=== PATIENT | female | born 1995 | race Caucasian/White ===

== ENCOUNTER 2017-01-08 15:45 | Inpatient (IN) | payer MEDICAID ==
[~2017-01-08] VITALS: Ht 154.9 cm; Wt 56.7 kg
[~2017-01-08 15:45] MED LIST: ANALPRAM HC 2.530 GM TP; EPIFOAM10 GM TP; IBUPROFEN600 MG PO; PERCOCET 5-3251 TAB PO; PRENATAL COMPLE1 TAB PO; TUCKS MEDICATE1 EACH TP; TUMS500 MG PO
[2017-01-08 16:47] VITALS: BP 122/71; BMI 23.6
[2017-01-08] MEDS ORDERED: PRENATAL COMPLE1 TAB PO (16:47)
[2017-01-08 17:23] LABS: HEMATOCRIT 31.5 % (36.0-48.0); HEMOGLOBIN 9.7 g/dL (12-16); MCH 23.5 pg (26.0-34.0); MCHC 30.8 g/dL (31.0-37.0); MCV 76.5 fL (80.0-100.0); MEAN PLATELET VOLUME 10.6 fL (7.4-10.4); RBC 4.12 10x6/uL (4.00-5.40); RDW 12.9 % (11.5-14.5); WBC 8.5 10x3/uL (4.8-10.8)
[2017-01-08 17:25] LABS: APPEARANCE CLEAR (CLEAR); BILIRUBIN NEGATIVE (NEGATIVE); COLOR YELLOW (YELLOW); GLUCOSE NEGATIVE (NEGATIVE); KETONE NEGATIVE (NEGATIVE); LEUKOCYTE ESTERASE NEGATIVE (NEGATIVE); NITRITE NEGATIVE (NEGATIVE); PROTEIN NEGATIVE (NEGATIVE); UROBILINOGEN NORMAL (NORMAL)
--- NOTE | 2017-01-09 00:20 | NUR ---
TO ROOM 1273 FROM 1276. ASSISTED PT. TO BED. PT. AWAKE AND ORIENTED. SKIN WARM AND DRY. ORIENTED TO ROOM, CALL SYSTEM, BED CONTROLS AND TEMPERASTAT FOR ROOM TEMP CONTROL. FOB AND PT. STATED UNDERSTANDING TO ALL. INFORMED PT. THAT THIS NURSE WOULD BE GLAD TO HELP HER TO THE BATHROOM ANYTIME NEEDED OR SHE COULD AMBULATE HERSELF IF SHE DESIRED. PT. STATED UNDERSTANDING.
--- NOTE | 2017-01-09 00:40 | NUR ---
ICE CAP TO PERINEAL AREA. PT. STATES CRAMPING IS INTERMITTENT. WARM BLANKET SUPPLIED TO PLACE ON ABD. PT. TEXTING ON CELL PHONE. DENIES ANY NEED FOR NOURISHMENTS OR DRINKS OFFERED. SIDE RAILS UP X 2. FUNDUS FIRM U/2 AND LOCHIA RUBRA SCANT TO MOD.
--- NOTE | 2017-01-09 02:15 | NUR ---
PT. CALLED AND THIS NURSE TO ROOM. STATES SHE JUST GOT UP TO BATHROOM AND HAVING SOME ABD. CRAMPING AGAIN. INQUIRING WHEN NEXT PAIN MED WAS DUE. INFORMATION GIVEN TO PT. ALSO REQUESTING ANOTHER ICE CAP FOR PERINEAL AREA. INQUIRED IF PT. DESIRED ANYTHING ELSE TO DRINK. GAVE PT. OPTIONS AVAILABLE.
--- NOTE | 2017-01-09 02:19 | NUR ---
[place] DRINK TO PT. ICE CAP SUPPLIED AND OFFERED TO ASSIST PT. TO PLACE BUT PT. STATED THAT SHE COULD DO IT HERSELF. FOB SLEEPING IN CHAIR AT BEDSIDE. PRESENTLY LYING ON RT SIDE.
--- NOTE | 2017-01-09 03:17 | NUR ---
pt. at present. Rates pain as a 10 of 10 on pain scale for intermittent cramping. pain med given as ordered.
--- NOTE | 2017-01-09 03:54 | NUR ---
SITTING ON SIDE OF BED HOLDING . STATES HER CRAMPING IS INTERMITTENT AND HAS IMPROVED. RATES A 9 OF 10 ON PAIN SCALE. OFFERED TO RETURN TO NBN BUT PT. DECLINES. STATES SHE CAN'T SLEEP ANYWAY SO SHE WILL KEEP HER. FOB SLEEPING ON SOFA.
--- NOTE | 2017-01-09 04:37 | NUR ---
LYING ON RT SIDE WITH EYES CLOSED. IN OPEN CRIB AT BEDSIDE AND ASLEEP. COLOR PINK. PT WITH REGULAR RESPIRATIONS.
--- NOTE | 2017-01-09 04:40 | NUR ---
INFANT RETURNED TO NBN VIA N STAFF.
[2017-01-09 05:28] LABS: BASOPHILS 0.2 % (0.0-2.0); HEMATOCRIT 28.4 % (36.0-48.0); HEMOGLOBIN 8.9 g/dL (12-16); IMMATURE GRANULOCYTES 0.2 % (0-5); MCH 23.7 pg (26.0-34.0); MCHC 31.3 g/dL (31.0-37.0); MCV 75.7 fL (80.0-100.0); MEAN PLATELET VOLUME 11.4 fL (7.4-10.4); MONOCYTES 8.5 % (2-11); NEUTROPHILS 77.1 % (40-80); PLATELET COUNT 174 10x3/uL (130-400); RBC 3.75 10x6/uL (4.00-5.40); RDW 12.8 % (11.5-14.5); WBC 9.7 10x3/uL (4.8-10.8)
--- NOTE | 2017-01-09 06:03 | NUR ---
LYING ON LT SIDE LOOKING AT . FOB SLEEPING ON SOFA.
[2017-01-09 07:30] VITALS: BP 124/74
--- NOTE | 2017-01-09 07:30 | NUR ---
ASSESSMENT DONE. SITTING UP IN BED HOLDING . CO PAIN- CRAMPING- INCREASES WITH BREAST FEEDING. RATES PAIN A 7-8 ON SCALE OF 0-10. REQUESTING PAIN MED. FUNDUS U3/FIRM. SCANT LOCHIA NOTED ON PAD.
--- NOTE | 2017-01-09 07:50 | NUR ---
meds given for pain per request. new gown. pt instructed to call when gets up to bathroom next.
--- NOTE | 2017-01-09 08:45 | NUR ---
states that pain is better. rates pain a 5 now with cramping. up to bathroom to void. instructed on use of dermablast and tucks pads. pt states she is not ready to take shower at this time.
--- NOTE | 2017-01-09 10:55 | NUR ---
Katy Martin 01/09/17 S: Patient states she nursed her last baby for 2 years, she just stopped nursing one, now she has another. States she is familiar with , states infant does sleep a lot. O: Patient lying in bed, infant next to her, television on. States she tried feeding infant earlier, but baby just slept on and off, and she had visitors, states she can try again. starts winning, patient attempts to place her nipple in mouth, saying she really won't open her mouth, and tries again to place nipple in mouth. Recommend to try and allow infant to open her mouth to latch on to the breast. This will allow infant to have a good latch.Explain how to verify infant is latched correctly. Encouraged patient to try skin to skin now, and stimulate infant by rubbing, to encourage feeding. Encouraged to continue to latch infant for every feeding, explain feeding cues, benefits of skin to skin. takes time and patience in the beginning, the more is placed to the breast, her body will increase, they amount of milk needed for infant. Provided and explain handout on waking a sleeping baby, positions for , what to expect the first week, engorgement during , and hand expression. Asked if she gets WIC, patient states no, she doesn't want to. . Provided fact sheet on how to qualify. Will follow up, asked if any needs or concerns, client declined. A: Patient appears confident with . Breastfed her other child for 2 years. P: Continue to support exclusively . Jeannie Billy, CLC
--- NOTE | 2017-01-09 11:24 | NUR ---
Called to room, pt in bed crying. States she just finished breast feeding and she is cramping to point she can not move. Infant taken, reswaddled and placed in crib at bedside. Pt encouraged to get up to bathroom and attempt to void, explained how she needed to try and empty her bladder at least every 2 hours which will help with pain control. Emar checked and pt understands that pain med can be given at 1150, but she will need to call nurse if she is still needing any meds at that time.
--- NOTE | 2017-01-09 12:01 | NUR ---
pt requesting pain medication. states she will be ready to shower when returns with shower shoes. pt requests 10mg vs 5 mg percocet.
--- NOTE | 2017-01-09 13:55 | NUR ---
up to shower. linens changed.
--- NOTE | 2017-01-09 14:00 | NUR ---
dr breen in unit to see pt. no new orders.
[2017-01-09 14:22] VITALS: Ht 154.9 cm; Wt 56.7 kg
[2017-01-09 14:39] VITALS: BP 110/66
--- NOTE | 2017-01-09 14:40 | NUR ---
rings call light- requesting ibuprofen before starts next breast feeding. co cramping with feeding . currently states pain is" not that bad". rates pain a 4 to 5 on scale of 0-10.
--- NOTE | 2017-01-09 17:23 | NUR ---
sitting up in bed. eating diet. co cramping and requesting pain medication.
--- NOTE | 2017-01-09 18:09 | NUR ---
sitting up in bed. states that cramping is better after percocet. sign other at bedside. in room.
[2017-01-09 19:38] VITALS: BP 128/60
--- NOTE | 2017-01-09 19:38 | NUR ---
SHIFT ASSESSMENT COMPLETED. PT SITTING IN BED BONDING WITH . PAIN 6/10 INTERMITTENT ABD CRAMPING AND BURNING AND STINGING TO PERINUM. STATES THAT USING TUX AND EPIFOAM TO PERINUM IS HELPING WITH PERINEAL PAIN. ALTERNATIVE PAIN MGMT TECHNIQUES DISCUSSED, VERBALIZED UNDERSTANDING. FUNDUS FIRM, U2 WITH SMALL AMT RUBRA LOCHIA, NO CLOTS NOTED. VSS. ICE WATER GIVEN. PT REPORTS PASSING FLATUS, BUT STATES THAT SHE HAS NO BM. PT REPORTS THAT SHE HAS SHOWERED AND AMBULATED IN THE BALLARD. SPOUSE AT BEDSIDE. BED IN LOW POSITION, CL/PHONE WITH REACH. DENIES NEEDS AT THIS TIME.
--- NOTE | 2017-01-09 20:15 | NUR ---
INFANT IN CRIB AT BEDSIDE. PT REPORTS THAT HER CRAMPING WITH THIS IS MUCH WORSE THAN HER FIRST INFANT. EXPLAINED TO PT THAT WITH EACH INFANT IT IS NORMAL FOR CRAMPING TO INCREASE AND CRAMPING ALSO INCREASES WITH D/T BODY RELEASING OXYTOCIN NATURALLY, PT VERBALIZED UNDERSTANDING. ICE WATER GIVEN, DENIES ADDITIONAL NEEDS AT THIS TIME. REPORTS THAT PERINUM IS ALSO STILL SORE, ENCOURAGED SITZ BATH, REPORTS THAT SHE PREFORMED WHEN SHE SHOWERED, AND HAS BEEN USING WARM BETADINE WASHES FOLLOWING EACH VOID. DENIES NEEDS AT THIS TIME. REPORTS THAT SHE WILL USE CL IF SHE HAS ANY ADDITIONAL NEEDS.
--- NOTE | 2017-01-09 21:04 | NUR ---
PAIN 8/10. ABD CRAMPING WITH . REQUESTS PERCOCET AND MOTRIN TOGETHER. STATES THAT WHEN SHE TOOK THEM TOGETHER EARILER IN THE DAY THAT THE MEDS WORKED MUCH BETTER. GIVEN PER ORDER AND REQUEST. WARM BLANKET ALSO GIVEN TO APPLY TO ABD, VERBALIZED APPRECIATION AND RELIEF. SPOUSE REMAINS AT BEDSIDE, SUPPORTIVE OF PT, DENIES ADDITIONAL NEEDS AT THIS TIME.
--- NOTE | 2017-01-09 21:49 | NUR ---
PAIN REASSESSMENT COMPLETED. PT SITTING IN BED HOLDING INFANT, PAIN 5/10, INTERMITTENT ABD CRAMPING. REQUESTS PACIFIER FOR , GIVEN PER REQUEST. SPOUSE AT BEDSIDE. ICE CHIPS GIVEN PER REQUEST. DENIES ADDITIONAL NEEDS.
--- NOTE | 2017-01-09 22:30 | NUR ---
PT SITTING UP IN BED FILLING OUT NBN PAPERWORK. INFANT IN NBN AT THIS TIME. STATES THAT SHE AND SPOUSE NAMED INFANT "TONNY." PAIN 4-510 CURRENTLY. DENIES NEEDS. STATES THAT SHE IS GOING TO TRY TO TAKE A NAP BEFORE NEXT FEEDING. SPOUSE REMAINS AT BEDSIDE, DENIES NEEDS AT THIS TIME.
--- NOTE | 2017-01-10 00:25 | NUR ---
INFANT BROUGHT TO ROOM FOR . PT RATES PAIN 3/10, REQUESTS PAIN MEDICATION WHEN DUE. DENIES OTHER NEEDS AT THIS TIME. SPOUSE SLEEPING ON COUCH. CL/PHONE WITHIN REACH.
--- NOTE | 2017-01-10 01:07 | NUR ---
PAIN CURRENTLY 6/10, INTERMITTENT ABD CRAMPING. REPORTS THAT PAIN INCREASED WHEN SHE BEGAN NURSING INFANT. PERCOCET GIVEN PER ORDERS/REQUEST. SPOUSE REMAINS AT BEDSIDE. BED IN LOW POSITION, CL/PHONE WITHIN REACH. ICE WATER GIVEN, DENIES ADDITIONAL NEEDS AT THIS TIME.
--- NOTE | 2017-01-10 01:52 | NUR ---
PAIN REASSESSMENT COMPLETED. PT RESTING WITH EYES CLOSED, AROUSED WHEN DOOR OPENED. PAIN 02/06. DENIES NEEDS AT THIS TIME.
--- NOTE | 2017-01-10 03:56 | NUR ---
ROUNDS MADE. INFANT IN CRIB AT BEDSIDE. SPOUSE AWAKE ON COUCH AT THIS TIME. PT RESTING WITH EYES CLOSE, RESPIRATIONS REGULAR, NO S/S OF DISTRESS NOTED. SPOUSE DENIES NEEDS AT THIS TIME.
--- NOTE | 2017-01-10 04:37 | NUR ---
PT TAKING INFANT BACK TO NBN, REPORTS THAT SHE AND SPOUSE ARE GOING TO TRY TO REST. REQUESTS MOTRIN AND PERCOCET, PAIN 8/10, INTERMITTENT ABD CRAMPING AND BURNING/STINGING TO PERINUM. STATES THAT SHE IS STILL USING TUX, EPIFOAM, AND DERMAPLAST AND BETADINE WASH WITH EACH VOID. MEDS GIVEN PER REQUEST, SEE EMAR. ICE WATER AND PUDDING GIVEN PER REQUEST. HEP B CONSENT FOR INFANT SIGNED BY PT AND TAKEN TO [facility] BY RN. DENIES ADDITIONAL NEEDS AT THIS TIME. CL/PHONE WITHIN REACH. BED IN LOW POSITION, UPPER SIDE RAILS RAISED X2.
--- NOTE | 2017-01-10 05:21 | NUR ---
PAIN REASSESSMENT COMPLETED. PAIN 0/10, PT RESTING WITH EYES CLOSED, DID NOT OPEN EYES WHEN RN ENTERED ROOM. RESPIRATIONS REGULAR, NO S/S OF DISTRESS NOTED. SPOUSE REMAINS AT BEDSIDE, IN NBN. BED IN LOW POSITION WITH CL/PHONE WITHIN REACH. UPPER SIDE RAILS RAISED X2. DENIES NEEDS AT THIS TIME. WILL CONT TO MONITOR AND ASSIST PRN.
--- NOTE | 2017-01-10 06:18 | NUR ---
PT RESTING IN BED. INFANT BROUGHT TO ROOM BY RN FOR . PT RATES PAIN 2-3/10 AT THIS TIME. DENIES NEED FOR INTERVENTION AT THIS TIME. ICE WATER GIVEN. SPOUSE REMAINS AT BEDSIDE. PT DENIES NEEDS AT THIS TIME. BED IN LOW POSITION WITH UPPER SIDE RAILS RAISED X2. CL/PHONE WITHIN REACH. PT NURSING WHEN RN LEFT ROOM.
[2017-01-10 07:21] LABS: RAPID PLASMA REAGIN Non Reactive (Non Reactive)
[2017-01-10 07:26] VITALS: BP 116/80
--- NOTE | 2017-01-10 07:33 | NUR ---
ASSUMED CARE OF THIS PATIENT. SHIFT ASSESSMENT COMPLETED. ANTICIPATE DC HOME TODAY. INFANT TO NURSERY FOR DOG RAISER. NO REQUESTS AT THIS TIME. TO CALL WHEN READY FOR SHOWER. CALL LIGHT IN REACH.
--- NOTE | 2017-01-10 08:13 | NUR ---
SITTING UP IN BED, LIGHTS OFF, INFANT IN NURSERY. VERBAL AND WRITTEN INFORMATION GIVEN ON TDAP. PT IS CONSIDERING RECEIVING PRIOR TO DC. NO REQUESTS.
--- NOTE | 2017-01-10 09:50 | NUR ---
PERCOCET 5 MG GIVEN FOR 8 /10 PERINEAL PAIN. PT SAYS SHE EPIFOAM AFTER GOING TO THE BATHROOM. WILL INSTRUCT PT ON SITZ BATH AND USE AFTER SHE COMPLETES . NO REQUESTS AT THIS TIME. CALL LIGHT IN REACH.
--- NOTE | 2017-01-10 10:51 | NUR ---
SITTING UP IN BED HOLDING . DR HAY VISITED. PAIN 03/09 AT THIS TIME. STATES "I'M JUST READY TO GO HOME." DECLINED TDAP. WAITING ON FOB TO RETURN WITH CARSE[facility].
--- NOTE | 2017-01-10 11:39 | NUR ---
DC INSTRUCTIONS COMPLETED. VERBAL AND WRITTEN INFORMATION ON ROUTINE PP CARE, PP DEPRESSION, BREAST CARE, S&S INFECTIONS, MEDICATION ADMINISTRATION, COMMUNITY RESOURCES AND FOLLOW-UP GIVEN. PATIENT ALSO RECEIVED INFORMATION ON TDAP BUT REFUSED TODAY. INFANT IN ARMS FOR . AWAITING DC AND FOB TO RETURN WITH [facility] BEFORE FINAL DISCHARGE.
--- NOTE | 2017-01-10 12:42 | NUR ---
INFANT HAS BEEN DC'D. WAITING ON PATIENT TO COMPLETE REGISTRATION THEN WILL DC TO CAR. FOB PRESENT WITH BHAVIN.
--- NOTE | 2017-01-10 13:37 | NUR ---
COMPLETING CERTIFICATE PAPERWORK PRIOR TO DC. REQUESTED PERCOCET FOR RELIEF OF 3/10 PERINEAL PAIN AND TO HELP FOR TRIP HOME BEFORE RX CAN BE FILLED AT PHARMACY. PERCOCET 5 MG GIVE PO AT THIS TIME. FOB AND IN ROOM.
--- NOTE | 2017-01-10 14:00 | NUR ---
INSTRUCTED ON USE OF SITZ BATH AT HOME. DC HOME VIA WHEELCHAIR TO CAR. INFANT IN CARSE[facility]. FOB PRESENT. REMOVED ALL BELONGINGS FROM ROOM AND HAS WRITTEN PRESCRIPTIONS AND DC INSTRUCTIONS. TO CALL THURSDAY FOR F/U APPOINTMENT IN FOUR WEEKS. VERBALIZED UNDERSTANDING.
== END 2017-01-10 14:00 | disposition home or self-care (01) | DRG 775 ==
LOC: D.LD 15:45
PROVIDERS: ADMIT Specialist
PROC: 10E0XZZ Delivery of Products of Conception, External Approach (ICD-10-PCS; principal; 2017-01-08)
PROC: 0W8NXZZ Division of Female Perineum, External Approach (ICD-10-PCS; 2017-01-08)
DX: O80 Encounter for full-term uncomplicated delivery (principal); Z3A.37 37 weeks gestation of pregnancy; Z37.0 Single live birth